=== PATIENT | female | born 1995 | race Caucasian/White ===

== ENCOUNTER 2018-04-01 23:02 | Emergency (ER) | payer MEDICAID, SELFPAY ==
[2018-04-01 23:03] VITALS: BP 123/74; PULSE 69; RESP 14; TEMP 36.8; O2SAT 98; BMI 28.0
[2018-04-01 23:46] LABS: Internal QC Validated? YES +Cl - CLEAR BKGD
[2018-04-01 23:47] LABS: Pregnancy, Urine Positive Negative
--- NOTE | 2018-04-01 23:49 | ED.RN ---
DR. MADRID INFORMED THAT LAB CALLED WITH POSITIVE TEST.
--- NOTE | 2018-04-02 00:02 | ED.DCSUM_ITS ---
- ER Visit Summary Date of Service: 04/01/18 Chief Complaint: Left breast pain History of Present Illness: The patient is a 22 F who presents with left breast pain. This began about 2-3 days ago. She does regular self breast exams. She noticed some tenderness but no masses. She became very concerned because there is a family history of breast cancer. She denies any redness or swelling. She took ibuprofen with little relief. Her last menstrual period began on March 09 so she is a few days late. She denies any pelvic pain, vaginal bleeding, abnormal vaginal discharge. Physical Examination: Afebrile vitals are normal Patient does have some left breast tenderness she has no erythema no palpable mass no nipple discharge Heart regular rate and rhythm Lungs clear Abdomen soft nontender nondistended Test Results: Urine is positive. Emergency Department Course and Treatment: She was advised of her positive test result. This is likely the cause of her breast tenderness. She denies any pelvic pain vaginal bleeding vaginal discharge. No indication for any further emergent diagnostic workup. She has a scheduled appointment with gynecology. She was advised to call tomorrow to advise him she is . She will follow-up as an outpatient. She was instructed on specific signs and symptoms to monitor for, conditions under which to return to the emergency department and she was discharged. Treatment Plan: [] Disposition: Discharge Impression: This note was generated with [employer] dictation software. It may contain incorrect words, spelling, and punctuation that were not noted in review of the chart prior to signing ED Disposition - Plan for ED Patient: Chief Complaint: Chest Other Referrals: Care Physician,No Primary [Primary Care Provider] -
--- NOTE | 2018-04-02 00:02 | ED.DEP ---
ED Disposition - Plan for ED Patient: Chief Complaint: Chest Other Instructions: ED Preg Established Normal Sxs Referrals: Care Physician,No Primary [Primary Care Provider] -
== END 2018-04-02 00:15 | disposition home or self-care (01) ==
PROVIDERS: Emergency Provider Emergency Medicine
DX: O26.899 Other specified pregnancy related conditions, unspecified trimester (principal); N64.4 Mastodynia; O99.330 Smoking (tobacco) complicating pregnancy, unspecified trimester; Z3A.00 Weeks of gestation of pregnancy not specified
CPT/HCPCS: 81025; 99282

== ENCOUNTER 2018-05-12 21:11 | Emergency (ER) | payer MEDICAID, SELFPAY ==
[2018-05-12 21:13] VITALS: BP 129/90; PULSE 69; RESP 16; TEMP 36.7; O2SAT 100
[2018-05-12] MEDS: proMETHazine 25 MG Tablet PO (21:32)
[2018-05-12 21:47] LABS: Mucous, Urine 0 SEEN /hpf (<or=2+)
[2018-05-12 21:51] LABS: Color, Urine Yellow (Yellow); Glucose, Dipstick Normal (Normal); Ketone-Dipstick 50 mg/dl (Negative); Leukocyte Esterase-Dipstick 100 /ul (Negative); Nitrite-Dipstick Negative (Negative); Occult Blood-Urine 10 /ul (Negative); Protein-Dipstick 15 mg/dl (Negative); Specific Gravity, Urine 1.015 (1.002-1.030); Urine Bilirubin Dipstick Negative (Negative); Urine Clarity Cloudy (Clear); Urine Urobilinogen Normal (Normal)
[2018-05-12 22:05] LABS: Amorphous Sediment 2+; White Blood Cells 0-5 SEEN /hpf (0-5)
[2018-05-12 22:06] LABS: Bacteria RARE /hpf (None Seen); Squamous Epithelial Cells - UA 10-25 SEEN /hpf (5-10)
[2018-05-12 22:08] LABS: Red Blood Cells-Urine 0-5 SEEN /hpf (0-5)
--- NOTE | 2018-05-12 22:24 | ED.VISSUMM ---
- ER Visit Summary Date of Service: 05/12/18 Chief Complaint: Nausea and vomiting History of Present Illness: The patient is a 22 F who had nausea vomiting. She vomited once at work today. She felt dizzy afterwards. She is 10 weeks gestation. She is . She took vitamin B6 this morning. She did have some issues with nausea during the first 8 weeks of her but nothing recently. Denies any abdominal pain. No vaginal bleeding. Physical Examination: Vital signs reviewed. HEENT exam unremarkable. Heart is regular rate and rhythm without murmurs. Lungs are clear to auscultation. Abdomen is soft and nontender. Extremities reveal no edema. Skin exam normal. Neurologic exam normal. Test Results: Analysis negative Emergency Department Course and Treatment: She was given Phenergan and feels better. She requested something for headache so she is given Tylenol. Patient will be discharged with Phenergan at home. She will follow up with her RESERVATION CLERK Treatment Plan: [] Disposition: Discharge Impression: Nausea and vomiting This note was generated with Bant[employer] dictation software. It may contain incorrect words, spelling, and punctuation that were not noted in review of the chart prior to signing ED Disposition - Plan for ED Patient: Chief Complaint: Nausea/Vomiting Referrals: Care Physician,No Primary [Primary Care Provider] -
--- NOTE | 2018-05-12 22:25 | ED.DEP ---
ED Disposition - Plan for ED Patient: Disposition: Home or Assisted Living Chief Complaint: Nausea/Vomiting Instructions: ED Nausea Vomiting Prescriptions: proMETHazine tablet [Phenergan] 25 mg PO Q6H PRN PRN #10 tab PRN Reason: Nausea Referrals: Care Physician,No Primary [Primary Care Provider] -
[2018-05-12] MEDS: Acetaminophen 325 MG Tablet 650 MG PO (22:31)
[2018-05-12 22:32] VITALS: BP 123/58; PULSE 54; RESP 16; O2SAT 100
== END 2018-05-12 22:35 | disposition home or self-care (01) ==
PROVIDERS: Emergency Provider Emergency Medicine
DX: O21.9 Vomiting of pregnancy, unspecified (principal); O99.331 Smoking (tobacco) complicating pregnancy, first trimester; Z3A.10 10 weeks gestation of pregnancy
CPT/HCPCS: 81001; 99284

== ENCOUNTER 2018-09-14 13:44 | Outpatient (CLI) | payer MEDICAID, SELFPAY ==
[2018-09-14 14:30] VITALS: BMI 29.5
[2018-09-14 14:39] LABS: Mucous, Urine 0 SEEN /hpf (<or=2+); Red Blood Cells-Urine 0 SEEN /hpf (0-5)
[2018-09-14 14:43] LABS: Color, Urine Yellow (Yellow); Glucose, Dipstick Normal (Normal); Ketone-Dipstick Negative (Negative); Leukocyte Esterase-Dipstick 100 /ul (Negative); Nitrite-Dipstick Negative (Negative); Occult Blood-Urine Negative /ul (Negative); Protein-Dipstick Negative (Negative); Urine Bilirubin Dipstick Negative (Negative); Urine Clarity Sl. Cloudy (Clear); Urine Urobilinogen Normal (Normal)
[2018-09-14 14:48] LABS: Bacteria RARE /hpf (None Seen); Squamous Epithelial Cells - UA 10-25 SEEN /hpf (5-10); White Blood Cells 5-10 SEEN /hpf (0-5)
--- NOTE | 2018-09-19 22:36 | OB.TRI.NOTE ---
History of Present Illness Date of Service: 09/14/18 Was patient seen by the physician?: No Reason For Visit: PAIN Date of Service: 09/14/18 Final JUWAN: 12/04/18 Gestational age: 28 Weeks and 3 Days Allergies amoxicillin Allergy (Verified 05/12/18 21:13) Hives Penicillins [PCN] Allergy (Verified 05/12/18 21:13) Hives tioconazole [From Monistat 1 (tioconazole)] Allergy (Verified 05/12/18 21:13) Rash Laboratory Studies: Laboratory Tests 09/14/18 Range/Units 14:00 Urine Color Yellow (Yellow) Urine Clarity Sl. Cloudy (Clear) Urine pH 7.0 (5.0 - 8.0) Ur Specific [place] 1.010 (1.002-1.030) Urine Protein Negative (Negative) mg/dl Urine Glucose (UA) Normal (Normal) mg/dl Urine Ketones Negative (Negative) mg/dl Urine Occult Blood Negative (Negative) /ul Urine Nitrite Negative (Negative) Urine Bilirubin Negative (Negative) mg/dL Urine Urobilinogen Normal (Normal) mg/dl Ur Leukocyte Esterase 100 H (Negative) /ul Urine RBC 0 SEEN (0-5) /hpf Urine WBC 5-10 SEEN (0-5) /hpf Ur Squamous Epith Cells 10-25 SEEN (5-10) /hpf Urine Bacteria RARE (None Seen) /hpf Urine Mucus 0 SEEN (<or=2+) /hpf NST - FHR Rate Baby A Baseline: 135 Variability:: Moderate Accelerations:: 15 x 15 Decelerations:: Variable NST Reactive:: Yes Uterine Activity:: quiet Impression/Plan Reactive NST for threatened PTL
== END 2018-09-14 15:15 | disposition home or self-care (01) ==
LOC: WPOUT 13:46 → OBT 13:47
PROVIDERS: Referring Provider Obstetrics & Gynecology; Visit Provider Obstetrics & Gynecology
DX: O60.03 Preterm labor without delivery, third trimester (principal); Z3A.28 28 weeks gestation of pregnancy
CPT/HCPCS: 59025; 59050; 81001; 99218; G0378

== ENCOUNTER 2018-11-22 05:30 | Inpatient (IN) | payer MEDICAID, SELFPAY ==
[2018-11-22 05:14] VITALS: BMI 31.8
[2018-11-22] MEDS: Lactated Ringers 1,000 ML 50 ML IV ×3 (05:22→16:00)
[2018-11-22 05:29] LABS: ROM Internal Control Test YES-OK TO RESULT pt. (Internal QC)
[2018-11-22 05:30] LABS: ROM Patient Test POSITIVE (Negative); Record Kit Lot#, ROM+ J7836
[2018-11-22] MEDS: Terbutaline 1 MG/ML Vial 0.25 MG SC (05:34)
[2018-11-22 06:23] LABS: Hematocrit 43.5 % (37-47); Hemoglobin 14.5 g/dl (12.0-15.0); Mean Corp Hgb Conc 33.3 g/gl (32-36); Mean Corpuscular Hgb 30.1 pg (27.0-32.0); Mean Corpuscular Volume 90.2 fL (81-99); Mean Platelet Vol. 12.3 fl (6.2-12.0); Platelet Count 241 K/mm3 (150-450); RBC Distribution Width CV 12.7 % (11.6-14.6); RBC Distribution Width SD 40.9 fl (35.1-43.9); Red Blood Count 4.82 M/mm3 (4.2-5.4); White Blood Count 13.3 K/mm3 (4.4-11.0)
[2018-11-22 06:25] LABS: Scan Indicated on CBC? Y/N NO
--- NOTE | 2018-11-22 07:43 | PCM.HP.OB ---
- Problem List (1) SROM (spontaneous rupture of membranes) Status: Acute (2) Active labor at term Status: Acute History Date of Admission: 11/22/18 Final JUWAN: 12/04/18 Final JUWAN Source: US <20 weeks Gestational age: 38 Weeks and 2 Days History of this : This is a 23 year-old, G [2], P [0], at 38 weeks gestational age presenting with complaint of SROM around 0400 this morning for clear fluid. Soon after patient started to have regular and strong contractions. Patient denies any vaginal bleeding. Reports +FM at this time. Patient desires medical management and epidural anesthesia for labor. Allergies amoxicillin Allergy (Verified 11/22/18 06:05) Hives Penicillins [PCN] Allergy (Verified 11/22/18 06:05) Hives tioconazole [From Monistat 1 (tioconazole)] Allergy (Verified 11/22/18 06:05) Rash Home Medications: Home Medications Pnv No.95/Ferrous Fum/Folic AC [ Formula] 1 each PO DAILY 05/12/18 Smoking Status: Former smoker Alcohol: None Number of Fetus(es): 1 Heart Tracing: Baseline 120, moderate variability, + accels, no decels currently. On admission one isolated prolonged deceleration with george to 90's x 4 minutes noted. Spontaneous recovery with position change and IV fluid bolus. TOCO Analysis: Ctx q 3-4 minutes lasting 45-60 seconds. Mildly strong to palpation. History Past Pregnancies: Past Pregnancies Delivery Date Name GA/Weeks Outcome Route Weight Infant Gender Labor Length Anesthesia Delivery Location Provider FOB 12/2016 8wks SAB Labs: GBS Positive, CBC WNL x 2, Syphilis NR, Rubella Immune, HepBsAg Neg, HIV NR, O positive, Abs Neg, Urine Culture Neg, Sequential Screen Preliminary Neg - patient did not complete full screen as she opted out of 2nd trimester portion, Urine Tox Neg, GC/CT Neg/Neg, Trich Neg Expected Delivery Method: Spontaneous Vaginal Describe any other labor & delivery plans:: Patient desires epidural anesthesia for labor Number of Visits: 14 Review of Systems Constitutional: Denies: Chills, Fever, Weight Change HEENT: Denies: Head Aches, Sinus Congestion, Sinus Drainage Cardiovascular: Denies: Chest Pain, Palpitations Respiratory: Denies: Cough, Shortness of breath at rest, Sputum production Gastrointestinal: Denies: Abdominal Pain, Nausea, Vomiting Genitourinary: Denies: Dysuria Gynecological: Reports: Vaginal discharge - Clear watery fluid c/w amniotic fluid. Denies: Vaginal bleeding Musculoskeletal: Denies: Joint Pain, Joint Tenderness Skin: Denies: Rash, Wounds Neurological: Denies: Numbness, Tingling, Focal weakness Psychiatric: Denies: Anxiety, Depression, Homicidal Ideations, Suicidal Ideations Hematologic/ Lymphatic: Denies: Easy Bruising, Easy Bleeding Physical Exam Vitals: See nursing Note for vitals - normotensive and afebrile General: Alert, Oriented x3, No apparent distress HEENT: Atraumatic, Normocephalic. Negative for: Thyromegaly, Lymphadenopathy Cardiovascular: Regular rate, Regular Rhythm Lungs: Clear to auscultation Abdomen: Soft, Non Tender, Gravid - EFW = 6.5# Extremities:: No edema Neurological: Deep Tendon Reflexes 2+/4 and Symmetrical, Neuro grossly intact LEGAL ASSISTANT: Normal external genitalia. Negative for: Vulvar lesions Estimated gestational size: Appropriate for gestational size Presentation: Cephalic Cervix Dilation (cm): 2 - per assessment coordinator on admission Station: -3 Effacement (%): 60 Assessment/Plan All Active Problems SROM (spontaneous rupture of membranes) (Acute) Active labor at term (Acute) This is a 23 year-old, G [2], P [0], at 38 weeks gestational age, + SROM, Category I-II FHT, GBS Positive 1) Admit patient - IV started and admission bloodwork drawn 2) Start abx for GBS prophylaxis as ordered - patient is PCN allergic. Will use Ancef at this time. 3) Encourage PO hydration, position changes. Epidural on demand. 4) Continue expectant management at this time 5) Report given to oncoming provider Pam Kim CERTIFIED DIALYSIS TECHNICIAN-CNM
[2018-11-22] MEDS: Nalbuphine 10 MG/ML Ampul IV (07:45)
--- NOTE | 2018-11-22 07:47 | HP.PCM_ITS ---
- Problem List (1) SROM (spontaneous rupture of membranes) Status: Acute (2) Active labor at term Status: Acute History Date of Admission: 11/22/18 Final JUWAN: 12/04/18 Final JUWAN Source: US <20 weeks Gestational age: 38 Weeks and 2 Days History of this : This is a 23 year-old, G [2], P [0], at 38 weeks gestational age presenting with complaint of SROM around 0400 this morning for clear fluid. Soon after patient started to have regular and strong contractions. Patient denies any vaginal bleeding. Reports +FM at this time. Patient desires medical management and epidural anesthesia for labor. Allergies amoxicillin Allergy (Verified 11/22/18 06:05) Hives Penicillins [PCN] Allergy (Verified 11/22/18 06:05) Hives tioconazole [From Monistat 1 (tioconazole)] Allergy (Verified 11/22/18 06:05) Rash Home Medications: Home Medications Pnv No.95/Ferrous Fum/Folic AC [ Formula] 1 each PO DAILY 05/12/18 Smoking Status: Former smoker Alcohol: None Number of Fetus(es): 1 Heart Tracing: Baseline 120, moderate variability, + accels, no decels currently. On admission one isolated prolonged deceleration with george to 90's x 4 minutes noted. Spontaneous recovery with position change and IV fluid bolus. TOCO Analysis: Ctx q 3-4 minutes lasting 45-60 seconds. Mildly strong to palpation. History Past Pregnancies: Past Pregnancies Delivery Date Name GA/Weeks Outcome Route Weight Infant Gender Labor Length Anesthesia Delivery Location Provider FOB 12/2016 8wks SAB Labs: GBS Positive, CBC WNL x 2, Syphilis NR, Rubella Immune, HepBsAg Neg, HIV NR, O positive, Abs Neg, Urine Culture Neg, Sequential Screen Preliminary Neg - patient did not complete full screen as she opted out of 2nd trimester portion, Urine Tox Neg, GC/CT Neg/Neg, Trich Neg Expected Delivery Method: Spontaneous Vaginal Describe any other labor & delivery plans:: Patient desires epidural anesthesia for labor Number of Visits: 14 Review of Systems Constitutional: Denies: Chills, Fever, Weight Change HEENT: Denies: Head Aches, Sinus Congestion, Sinus Drainage Cardiovascular: Denies: Chest Pain, Palpitations Respiratory: Denies: Cough, Shortness of breath at rest, Sputum production Gastrointestinal: Denies: Abdominal Pain, Nausea, Vomiting Genitourinary: Denies: Dysuria Gynecological: Reports: Vaginal discharge - Clear watery fluid c/w amniotic fluid. Denies: Vaginal bleeding Musculoskeletal: Denies: Joint Pain, Joint Tenderness Skin: Denies: Rash, Wounds Neurological: Denies: Numbness, Tingling, Focal weakness Psychiatric: Denies: Anxiety, Depression, Homicidal Ideations, Suicidal Ideations Hematologic/ Lymphatic: Denies: Easy Bruising, Easy Bleeding Physical Exam Vitals: See nursing Note for vitals - normotensive and afebrile General: Alert, Oriented x3, No apparent distress HEENT: Atraumatic, Normocephalic. Negative for: Thyromegaly, Lymphadenopathy Cardiovascular: Regular rate, Regular Rhythm Lungs: Clear to auscultation Abdomen: Soft, Non Tender, Gravid - EFW = 6.5# Extremities:: No edema Neurological: Deep Tendon Reflexes 2+/4 and Symmetrical, Neuro grossly intact MANUAL LATHE OPERATOR: Normal external genitalia. Negative for: Vulvar lesions Estimated gestational size: Appropriate for gestational size Presentation: Cephalic Cervix Dilation (cm): 2 - per director of assessment on admission Station: -3 Effacement (%): 60 Assessment/Plan All Active Problems SROM (spontaneous rupture of membranes) (Acute) Active labor at term (Acute) This is a 23 year-old, G [2], P [0], at 38 weeks gestational age, + SROM, Category I-II FHT, GBS Positive 1) Admit patient - IV started and admission bloodwork drawn 2) Start abx for GBS prophylaxis as ordered - patient is PCN allergic. Will use Ancef at this time. 3) Encourage PO hydration, position changes. Epidural on demand. 4) Continue expectant management at this time 5) Report given to oncoming provider Pam Kim ASSIGNMENT MANAGER-CNM
[2018-11-22] MEDS: Oxytocin 30 units/NS 500 ml 30 UNITS/500 ML IV.SOLN IV (11:04)
[2018-11-22] MEDS: fentaNYL-bupivacaine (epidural) 100 ML BAG EPIDURAL (12:38)
[2018-11-22] MEDS: Cefazolin 1 GM/50 ML BAG IV (14:15)
[2018-11-22] MEDS: Ondansetron 4 MG/2 ML Vial IV (16:00)
[2018-11-22] MEDS: Oxytocin 30 units/NS 500 ml 30 UNITS/500 ML IV.SOLN 334 UNITS IV (18:00)
--- NOTE | 2018-11-22 18:15 | PCM.OB.VAG ---
Vaginal Delivery Maternal Presentation: Spontaneous Rupture of Membranes Augmentation of labor with Pitocin Amniotic Membrane Rupture Type: Spontaneous at home Amniotic Fluid Description: Clear Final JUWAN: 12/04/18 Final JUWAN Source: US <20 weeks Gestational age: 38 Weeks and 2 Days Date of Procedure: 11/22/18 Pre-Operative Diagnosis: Labor, spontaneous rupture of membranes Post-Operative Diagnosis: Same Surgery/ Procedure Performed: Spontaneous Vaginal Delivery Type of Anesthesia: Epidural Description of Procedure: A vigorous female was delivered JEFFERY over an intact perineum. A loose nuchal cord ?1 was easily reduced. The remainder the infant was delivered with maternal pushing and gentle traction only in less than 15 seconds. The Pitocin infusion was initiated for active management of the third stage. The cord was clamped and cut after 1 minute. The infant was attended to by the waiting nursing staff. The placenta was delivered spontaneously and intact. The cervix and vagina were intact. Sponge and needle counts were correct. A vaginal sweep was completed by me. Presentation: JEFFERY Placental Delivery Description: Spontaneous Placenta Disposition: [facility] Cord Vessel Description: 3 Vessels Nuchal Cord Compression: Without compression Cord Entanglement: Around neck x 1, loose Drain: Berry to straight drain Estimated Blood Loss: 200 cc Infant A gender: Female (1 minute): 9 (5 minute): 9 Episiotomy Description: None Laceration: None Medications given after delivery: IV Pitocin Complications: None
[2018-11-22] MEDS: Oxytocin 30 units/NS 500 ml 30 UNITS/500 ML IV.SOLN 167 UNITS IV (18:30)
--- NOTE | 2018-11-22 19:31 | NURSING ---
Notified by charge nurse that FOB is a registered sex offender in [facility]. I have not witnessed any negative, manipulative, or inappropriate behavior between FOB and patient. FOB has been appropriate and supportive throughout the labor process. Mother of FOB at bedside throughout labor and interactions between her and the couple were appropriate as well. Patient has stated that she loves the FOB but they are not a couple at this time because they argue too much. She explained that she has hopes that they will become a couple again after the of the baby.
--- NOTE | 2018-11-22 22:52 | NURSING ---
mars catheter removed @ 2044
[2018-11-22 23:30] VITALS: BP 132/69; PULSE 61; RESP 17; TEMP 37.2
[2018-11-23 04:20] VITALS: BP 144/69; PULSE 60; RESP 17; TEMP 37.1
[2018-11-23] MEDS: Naproxen 250 MG Tablet PO ×3 (04:26→20:23)
--- NOTE | 2018-11-23 07:20 | PCM.PN.OB ---
Patient Problems: Active and Suspected Problems SROM (spontaneous rupture of membranes) (Acute) Active labor at term (Acute) Subjective: pain well controlled, average lochia, no N/V - Physical Exam General: Alert, Cooperative, No apparent distress Vital Signs Temp Pulse Resp BP 98.8 F 60 17 144/69 H 11/23/18 04:20 11/23/18 04:20 11/23/18 04:20 11/23/18 04:20 Oxygen Delivery Method Room Air Weight: 73.936 kg Body Mass Index (BMI) 31.8 Intake and Output for Last 24 Hours 11/21/18 11/22/18 11/23/18 23:59 23:59 23:59 Intake Total 2911 / 2911 Output Total 2500 / 2500 450 / 450 Balance 411 / 411 -450 / -450 Laboratory Tests Past 24 Hrs 11/22/18 05:20 Blood Type O POSITIVE Antibody Screen NEGATIVE Medical Necessity - Tobacco Use Smoking Status: Former smoker Assessment/Plan All Active Problems SROM (spontaneous rupture of membranes) (Acute) Active labor at term (Acute) PPD#1 doing well routine care infant bottlefeeding mostly at this time desires nexplanon insertion
--- NOTE | 2018-11-23 08:57 | PCM.PN.BLA ---
Progress Note Procedure note: Risk benefits and alternatives to Nexplanon insertion were discussed with the patient, consent was signed. She desired to proceed. Timeout was performed confirming procedure, patient name, date of and allergies at 8:49 AM. Left lower upper arm was prepped with chlorhexidine solution. 1% lidocaine was used to anesthetize the skin and the standard area of insertion. The Nexplanon device was inserted in the usual fashion. The device was deployed and placement was confirmed by palpation after deployment. A bandage was placed and the patient tolerated the procedure well. Routine care instructions were given to the patient.
[2018-11-23] MEDS: Etonogestrel 68 MG IMPLANT SQ (09:11)
[2018-11-23 10:00] VITALS: BP 124/75; PULSE 63; RESP 16; TEMP 36.8
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
[2018-11-23 14:00] VITALS: BP 136/70; PULSE 58; RESP 16; TEMP 36.8
[2018-11-23 20:15] VITALS: BP 136/82; PULSE 60; RESP 16; TEMP 36.9
[2018-11-24 01:55] VITALS: BP 130/84; PULSE 60; RESP 16; TEMP 36.6
[2018-11-24] MEDS: Naproxen 250 MG Tablet PO ×2 (04:03→15:37)
[2018-11-24] MEDS: Acetaminophen 500 MG Tablet 1000 MG PO (08:29)
[2018-11-24 08:36] VITALS: BP 140/87; PULSE 56; RESP 16; TEMP 36.8
--- NOTE | 2018-11-24 10:47 | PCM.PN.OB ---
Patient Problems: Active and Suspected Problems SROM (spontaneous rupture of membranes) (Acute) Active labor at term (Acute) Subjective: Pain well controlled, average lochia. - Physical Exam General: Alert, Cooperative, No apparent distress Vital Signs Temp Pulse Resp BP 98.3 F 56 L 16 140/87 H 11/24/18 08:36 11/24/18 08:36 11/24/18 08:36 11/24/18 08:36 Oxygen Delivery Method Room Air Weight: 73.936 kg Body Mass Index (BMI) 31.8 Intake and Output for Last 24 Hours 11/22/18 11/23/18 11/24/18 23:59 23:59 23:59 Intake Total 2911 / 2911 Output Total 2500 / 2500 450 / 450 Balance 411 / 411 -450 / -450 Medical Necessity - Tobacco Use Smoking Status: Former smoker Assessment/Plan All Active Problems SROM (spontaneous rupture of membranes) (Acute) Active labor at term (Acute) day #2 status post vaginal delivery. Patient is doing well. is doing well. Routine care. Discharge home today.
--- NOTE | 2018-11-24 10:49 | DCINST_ITS ---
Discharge Diet: No Restrictions Discharge Activity: Return to Normal Activity, May not drive while taking narcotic pain medications., May Shower May resume sexual activity in: 4-6 weeks Additional Activity Instructions:: Nothing in the vagina for 4-6 weeks. You may return to work/school in 6 weeks. Call your doctor if your incision/area has: Continuous Slow Oozing, Sudden Increased Bleeding, Increased Pain/ Swelling, Increased Redness, Foul Smelling Discharge Additional Instructions: If you experience any of the following, contact your healthcare provider. * Bleeding that soaks a pad every hour for 2 hours * Fever 100.4 or higher * Unrelieved incision or abdominal pain * Swelling, redness, discharge or bleeding from your incision or episiotomy site * Your incision begins to separate * Problems urinating (including inability to urinate or burning while urinating). * Visual changes * Severe headache * Flu-like symptoms * Pain or redness in one of both of your breasts * Pain, warmth, tenderness or swelling in your legs, especially the calf area * Frequent nausea and vomiting * Symptoms of depression or anxiety If you experience any of the following, call 911 or go to the nearest Emergency Room. * Chest pain * Problems breathing * Seizure activity * Partial or complete paralysis of a body part, slurred speech, weakness or drooping of the face, or a sudden inability to walk or hold your balance Allergies/Adverse Reactions: Allergies amoxicillin Allergy (Verified 11/22/18 06:05) Hives Penicillins [PCN] Allergy (Verified 11/22/18 06:05) Hives tioconazole [From Monistat 1 (tioconazole)] Allergy (Verified 11/22/18 06:05) Rash Medications to take at Discharge Pnv No.95/Ferrous Fum/Folic AC [ Formula] 1 each PO DAILY 05/12/18 Ibuprofen [Motrin] 600 mg PO Q6H PRN #60 tablet 11/24/18 The following prescriptions were given: Ibuprofen [Motrin] 600 mg PO Q6H PRN #60 tablet PRN Reason: Pain Please Follow Up With: Hui Howe MD - [phone] When: Call to make an appointment in our office in 1-2 week sand 6 weeks. Primary Care Physician: Care Physician,No Primary [Primary Care Provider] - Test Results: Test results from this visit will be discussed in further detail at your follow- up appointment, if applicable.
[2018-11-24 14:00] VITALS: BP 138/79; PULSE 59; RESP 16; TEMP 37.2
[2018-11-24 18:50] VITALS: BP 136/74; PULSE 64; RESP 16; TEMP 37.1
--- NOTE | 2018-11-25 10:57 | CASEMGMT ---
SW called [facility] and expressed concerns regarding patient, father of baby and baby. They will review referral and determine if there is enough to go out to home. Otherwise they will keep referral on file. Candi MILLER MSW
== END 2018-11-24 18:50 | disposition home or self-care (01) | DRG 560 ==
LOC: WPOUT 05:35
PROVIDERS: Obstetrics & Gynecology; Admitting Provider Obstetrics & Gynecology; Visit Provider Obstetrics & Gynecology
DX: O76 Abnormality in fetal heart rate and rhythm complicating labor and delivery (principal); O42.02 Full-term premature rupture of membranes, onset of labor within 24 hours of rupture; O69.81X0 Labor and delivery complicated by cord around neck, without compression, not applicable or unspecified; O99.824 Streptococcus B carrier state complicating childbirth; Z3A.38 38 weeks gestation of pregnancy; Z37.0 Single live birth; Z30.430 Encounter for insertion of intrauterine contraceptive device; Z87.891 Personal history of nicotine dependence
CPT/HCPCS: 59025; 59050; 84112; 85027; 86850; 86900; 99218; J7120; G0378; J2405

== ENCOUNTER 2019-05-23 18:07 | Emergency (ER) | payer MEDICAID, SELFPAY ==
[2019-05-23 18:08] VITALS: BP 112/64; PULSE 77; RESP 17; TEMP 36.9; O2SAT 97; BMI 31.6
--- NOTE | 2019-05-23 18:21 | RAD_ITS ---
STUDY: X-RAY - RIGHT HAND REASON FOR EXAM: Female, 23 years old. Trauma TECHNIQUE: 3 view(s) of the hand. COMPARISON: None. FINDINGS: Normal radiocarpal articulation. Normal distal radioulnar joint. Normal visualized carpal bones. Normal carpal articulations Normal carpometacarpal articulation of the thumb. Normal second through fifth carpometacarpal joints. There is an old healed fifth metacarpal fracture. Normal metacarpophalangeal joint of the thumb. Normal interphalangeal joint of the thumb. Normal proximal and distal phalanges of the thumb. Normal metacarpophalangeal joints of the second through fifth fingers. Normal proximal and distal interphalangeal joints of the second through fifth fingers. Normal phalanges of the second through fifth fingers. The soft tissue structures are unremarkable. RAD/Hand Min 3 Views IMPRESSION: Old healed fifth metacarpal fracture. There is no evidence of acute fracture or dislocation. Electronically Signed: Yahir Ayala MD at 18:38 EDT , Service support ,
--- NOTE | 2019-05-23 19:08 | ED.DCSUM_ITS ---
- ER Visit Summary Date of Service: 05/23/19 Chief Complaint: [Injury to right hand] History of Present Illness: The patient is a 23 F [resents to the emergency department complaint of injury to the right hand that occurred 2 days ago while she was walking up the steps with laundry. Patient is right-hand dominant. Patient complains of pain with range of motion. Patient has had some intermittent numbness and tingling. Is any other injuries.] Physical Examination: [HEENT-PERRLA, EOMI. Cranial nerves II through XII grossly intact. TMs clear. Mucous membranes moist. No adenopathy. Cardiovascular-regular rate and rhythm without murmur or ectopy Lungs-clear to auscultation, chest wall stable without crepitus or subcu emphysema Abdomen-normoactive bowel sounds, soft, nontender, no rebound or rigidity, no peritoneal signs. Extremities-intact ?4, normal range of motion, normal pulses. Right hand-no obvious deformity. Patient has some mild soft tissue swelling over the dorsal lateral aspect of the hand over the fourth and fifth metacarpals. Patient has pain with flexion of the fourth and fifth metacarpals. There is no erythema or warmth noted.] Test Results: [X-rays of the right hand obtained showed no fractures or dislocations. Radiologist thought patient may have had an old healed fracture of the fifth metacarpal. Patient is not aware of any old fractures.] Emergency Department Course and Treatment: [He was given an Shahab wrap] Treatment Plan: [Follow-up with primary care physician addiction specialist for no doc within the next 5 to 7 days.] Disposition: [Discharge home in stable condition] Impression: [Right hand contusion] This note was generated with [employer] dictation software. It may contain incorrect words, spelling, and punctuation that were not noted in review of the chart prior to signing ED Disposition - Plan for ED Patient: Referrals: Care Physician,No Primary [Primary Care Provider] -
--- NOTE | 2019-05-23 19:13 | ED.DEP ---
ED Disposition - Plan for ED Patient: Instructions: CONTUSION, Hand Prescriptions: Naproxen [Naprosyn] 500 mg PO BID PRN #20 tab Prescription Printed Referrals: Care Physician,No Primary [Primary Care Provider] - Kelvin Puentes MD [STAFF PHYSICIAN] - 5-7 Days
== END 2019-05-23 19:20 | disposition home or self-care (01) ==
LOC: ED 18:48
PROVIDERS: Emergency Provider Emergency Medicine
DX: S60.221A Contusion of right hand, initial encounter (principal); W10.9XXA Fall (on) (from) unspecified stairs and steps, initial encounter; Y93.01 Activity, walking, marching and hiking
CPT/HCPCS: 73130; 99282

== ENCOUNTER 2019-09-07 10:05 | Emergency (ER) | payer OTHER, MEDICAID, SELFPAY ==
[2019-09-07 10:09] VITALS: BP 133/83; PULSE 77; RESP 18; TEMP 36.6; O2SAT 96; BMI 33.0
--- NOTE | 2019-09-07 11:20 | RAD_ITS ---
STUDY: X-RAY - LEFT KNEE REASON FOR EXAM: Female, 23 years old. PAIN S/P TWISTING INJURY 1 DAY AGO; -- FELT A POP TECHNIQUE: 4 view(s) of the knee. COMPARISON: None. FINDINGS: Normal visualized distal femur. Elongated sclerotic lesion of the proximal tibial lateral cortex compatible with benign lesion such as a ossifying fibroma. Normal proximal tibiofibular articulation. Normal medial femorotibial compartment. Normal lateral femorotibial compartment. Normal patellofemoral articulation. The soft tissue structures are unremarkable. RAD/Knee 4 or More Views IMPRESSION: 1. No fracture or malalignment. Electronically Signed: Nic Lockwood MD ([place]) at 12:03 EST , Service support ,
--- NOTE | 2019-09-07 12:12 | ED.DCSUM_ITS ---
History of Present Illness Chief Complaint: Lower Extremity Injury Informant: Patient Onset: Yesterday Narrative: Patient presents with a left knee injury. Patient states she was at work last night when she slipped on a greasy area on the floor. She states she fell down to the ground twisting her knee and felt a pop. She tells me that she has been able to bear weight though painful. Prior knee injuries that she is aware of to that knee. Past Medical History - Allergies and Home Meds Allergies/Adverse Reactions: Allergies amoxicillin Allergy (Verified 09/07/19 10:10) Hives Penicillins [PCN] Allergy (Verified 09/07/19 10:10) Hives tioconazole [From Monistat 1 (tioconazole)] Allergy (Verified 09/07/19 10:10) Rash Primary Care Physician: Care Physician,No Primary [Primary Care Provider] - Smoking Status: Current every day smoker Review of Systems General: Denies: Chills, Fever, Sweats Eyes: Denies: Visual changes - bilaterally, Diplopia ENT: Denies: Rhinorrhea, Sore throat Cardiovascular: Denies: Chest pain, Palpitations Respiratory: Denies: Dyspnea, Cough, Dyspnea on exertion Gastrointestinal: Denies: Abdominal pain, Nausea, Vomiting, Diarrhea, Melena, Hematochezia Genitourinary: Denies: Dysuria, Hematuria, Frequency Musculoskeletal: Reports: - - See history of present illness regarding left erick sullivan. Denies: Myalgias, Arthralgias, Neck pain, Back pain, Extremity Pain Skin: Denies: Rash, Wounds Neurological: Denies: Headache, Weakness, Numbness Physical Exam Vital Signs/Narrative: Vital Signs Temp Pulse Resp BP Pulse Ox 09/07/19 10:09 98 F 77 18 133/83 H 96 Inital Vital Signs reviewed: Yes General: Well nourished, Well developed, No Acute Distress Head: Normocephalic, Atraumatic Eyes: Perrl, EOMI ENT: Moist mucous membranes, No rhinorrhea Neck: Supple, Nontender Cardiovascular: Regular rate, Regular rhythm, No murmurs Respiratory: No distress, CTA bilaterally, Chest nontender Abdomen: Soft, Nontender, Nondistended, Normal bowel sounds Back: Nontender, Normal Inspection Extremities: No edema, - - Patient has diffuse tenderness to palpation to the knee. There is no effusion no ecchymosis no significant swelling. Extensor mechanism is intact. Ligaments are stable. Skin: Normal color, No rash Neurological: Alert, Oriented x3, Cranial nerves II-XII grossly intact, Normal Strength, Normal Sensation Psychological: Normal affect, Normal Mood Diagnostic/Tx/Re-eval - Medical Decision Making Knee x-rays were negative for fracture. Patient will do supportive care. Work restrictions will be given. This is Workmen's Comp. ED Disposition - Plan for ED Patient: Disposition: Home or Assisted Living Diagnosis: Left knee sprain Instructions: Knee Sprain Referrals: Clinic,NOW [NON-STAFF] - 3-5 Days
[2019-09-07 12:23] VITALS: RESP 18
== END 2019-09-07 12:24 | disposition home or self-care (01) ==
PROVIDERS: Emergency Provider Emergency Medicine
DX: S83.92XA Sprain of unspecified site of left knee, initial encounter (principal); W01.0XXA Fall on same level from slipping, tripping and stumbling without subsequent striking against object, initial encounter; Y93.9 Activity, unspecified; Y92.9 Unspecified place or not applicable; F17.200 Nicotine dependence, unspecified, uncomplicated
CPT/HCPCS: 73564; 99282

== ENCOUNTER → 2019-09-19 15:25 | Outpatient (CLI) | payer OTHER, MEDICAID, SELFPAY ==
[2019-09-15 09:37] VITALS: BMI 33.0
--- NOTE | 2019-09-19 15:26 | MRI_ITS ---
HISTORY: PAIN MEDIAL PATELLA AFTER FALL , X 3 WEEKS. Possible meniscus tear. All. Pain since 09/06/2019. Knee cap and medial pain EXAMINATION: MR Knee W/O Contrast TECHNIQUE: Multiplanar and multisequence MR images of the left knee. IV Contrast dosage and agent: None. 198 images COMPARISON: X-rays from September 07, 2019 FINDINGS: BONE: No fracture or abnormal bone marrow signal. JOINT: A very small joint effusion is present. No synovial hypertrophy is perceived Muscles: Minimal edema is present at the tendinous origin of the medial head of the gastrocnemius MENISCI: Medial and lateral menisci unremarkable. A small para meniscal cyst is present dorsal to the posterior horn of the medial meniscus, but without identified meniscal tearing. This may be result of the small effusion. CRUCIATE LIGAMENTS: Anterior and posterior cruciate ligaments are intact. COLLATERAL LIGAMENTS: Medial collateral ligament and lateral collateral ligamentous complex, inclusive of the popliteal tendon, are intact. CARTILAGE: Articular cartilage intact. OTHER SOFT TISSUES: A tiny amount of contusion appears to be within the prepatellar fat MRI/Lower Ext Joint Only (Routine) IMPRESSION: Small knee effusion. Possible minimal prepatellar contusion within the subcutaneous fat. Minimal tendinosis at the origin of the medial head of the gastrocnemius. No internal derangement of the knee perceived. No osseous contusion at 0110 Reported and signed by: Julius Hollingsworth MD Electronically Signed: Julius Hollingsworth MD at 1:09 EST Tel , Service support ,
== END ==
PROVIDERS: Referring Provider Physician Assistant; Visit Provider Physician Assistant
DX: S83.92XA Sprain of unspecified site of left knee, initial encounter (principal)
CPT/HCPCS: 73721

== ENCOUNTER 2019-10-15 10:30 | Outpatient (RCR) | payer OTHER, MEDICAID, SELFPAY ==
[2019-09-22 14:38] VITALS: BMI 33.0
--- NOTE | 2019-10-08 11:32 | HP.PTEVAL_ITS ---
Patient's Visit Information SHERMAN GUZMAN is a 24 year old F referred to Physical Therapy by GEORGETTE Sims with a diagnosis of Left Knee Sprain. Date of Evaluation: 10/08/19 Physical Therapist: Kristyn Sanchez DPT - Visit Plan Frequency: 3x /Week Duration: 4 Weeks Plan: Focus on LE and core s/s- modality of US and E-stim as needed. HEP given 10/08: Heel slide, quad set, SLR, hamstring stretch, HR/TR, SLS - Subjective Findings: Patient reports that she slid at [employer] 09/06/2019- they did an MRI which was negative for meniscus tear and positive for a bone bruise. Patient reports pain is still along the medial knee cap. Agg: standing for long periods of time, getting up off the floor and stairs (asc/desc). Worst: 11/17 Best: 09/19. Eases:rubbing it, and moving it out of the position. Occasionally the knee does lock- but does not buckle. When it locks she pushes down and it will unlock but is painful. When she sits to use the restroom the whole left leg goes numb and tingling. Describes the pain as dull and achy. No radiating pain unless it locks out- massages it and ices it and it loosens up but is painful. Has never had knee problems before- did play softball and has had some sprained knees before but nothing like this. Is back to work but its hard to work 8 hours on it. 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 Is not working an 8 hour day at this time. Sleep: distrubed- hard to get comfortable- belly and side sleeper PMHx: anxiety, depression, seizures (6 week-2 years) Meds: Zoloft- no seizure meds at this time. If the pain is really bad she will take Ibuprofen. Goals: wants to get back to being able to play with her 11 month old - Objective Posture: FH, RS- can correct but does not maintain. Gait: antalgic- vaulting over the left LE to avoid bending and demonstrates decrease stance time. Stairs: non recip on her toes with 2 HR. HR/TR: able but reports significant pain. SLS: WS but unable to SLS due to pain. Palpation: significant tenderness throughout medial knee. Sensation/Reflex: WNL. ROM: 0-130 degrees reports significant pain with end ranges. Strength: Core: fair minus, Hip: 4/5 Knee: Flex: 4/5, Extn: 4+/5, Ankle: 4/5 - Goals Goal 1:: Patient will be I with HEP and progression Goal Time Frame: 4-6 Weeks Goal 2:: Patinet will ambulate with a normalized gait pattern >300 feet Goal Time Frame: 4-6 Weeks Goal 3:: Patient will asc/desc 8 stairs recip with no HR Goal Time Frame: 4-6 Weeks Goal 4:: Patient will demo 4+/5 strength in LE Goal Time Frame: 4-6 Weeks - Rehabilitation Potential Physical Therapy Diagnosis: Patient presents with hypomobility- she has decreased painfree ROM, strength, flex and muscular endurance leading to increased pain with ADL's and an abnormal gait pattern Rehabilitation Potential: Fair - Anticipated Interventions Patient/Client Instruction: Educate patient on: Benefits of Fitness Program Therapeutic Exercise to Include: Strength training, Endurance training, Balance training, Agility training, Body mechanics, Postural training, Flexibilty training, Gait and locomotor training, Neuromotor development, Dynamic Lumbar Stabilization For the Purpose of:: To improve muscle performance and motor function TENS: Yes Cryotherapy (ice pack, ice massage): Yes Thermo therapy (hot pack): Yes Ultrasound (thermal/non thermal): Yes For the Purpose of:: To decrease pain, To improve nutrient delivery to tissue Thank you for the opportunity to evaluate your patient. For Medicare and Medicare HMO plans, please review the plan of care and approve it. It will need to be FAXED BACK to us at [phone] for Medicare purposes. For Medicare only, by signing this I certify the plan of care. Please let me know if there are questions or concerns regarding this plan of care. Physician Signature: Date:
--- NOTE | 2020-01-20 10:59 | HP.PT.NRP ---
SHERMAN GUZMAN was seen in my office for initial evaluation on 10/08/19. The following Plan of Care was established for this patient: Initial Frequency: 3x /Week Initial Duration: 4 Weeks Patient/Client Instruction: Educate patient on: Benefits of Fitness Program Therapeutic Exercise to Include: Strength training, Endurance training, Balance training, Agility training, Body mechanics, Postural training, Flexibilty training, Gait and locomotor training, Neuromotor development, Dynamic Lumbar Stabilization For the Purpose of:: To improve muscle performance and motor function TENS: Yes Cryotherapy (ice pack, ice massage): Yes Thermo therapy (hot pack): Yes Ultrasound (thermal/non thermal): Yes For the Purpose of:: To decrease pain, To improve nutrient delivery to tissue This patient was last seen in our office . Pertinent comments regarding their Physical therapy will appear below: Patient has not attended physical therapy in over 8 weeks- appropriate for d/c and return to MD as appropriate. At this point I will be discontinuing this patient from physical therapy. I would be happy to see this patient again in the future if found appropriate by the physician. Thank you! RANDY RomeroT
== END 2019-10-15 19:00 | disposition home or self-care (01) ==
LOC: PT 10:30
PROVIDERS: Referring Provider Physician Assistant Surgical; Visit Provider Physician Assistant Surgical
DX: S83.92XD Sprain of unspecified site of left knee, subsequent encounter (principal)
CPT/HCPCS: 97110; 97161